=== PATIENT | female | born 1975 | race Caucasian/White ===

== ENCOUNTER 2020-07-28 14:42 | Inpatient (IN) | payer MEDICAID, OTHER ==
[~2020-07-28] VITALS: Ht 157.5 cm; Wt 64.0 kg
[2020-07-28 16:16] LABS: BASOPHILS % 0.6 % (0.0-2.0); EOSINOPHILS % 1.3 % (0.0-5.0); HEMOGLOBIN. 12.3 g/dL (12.0-16.0); MEAN CORPUSCULAR VOLUME 90.3 fL (81.0-99.0); MEAN PLATELET VOLUME 7.3 fl (7.4-10.4); NEUTROPHILS % 40.1 % (40.0-76.0); PLATELET 198 x1000/uL (130-400); RED BLOOD CELL COUNT 4.09 mill/uL (4.2-5.4); RED CELL DISTRIBUTION WIDTH 20.7 % (11.6-14.6)
[2020-07-28 16:21] LABS: CHLORIDE 112 mEq/L (98-107)
[2020-07-28 16:23] LABS: PROTHROMBIN TIME 10.4 sec (9.6-11.0)
[2020-07-28 16:29] LABS: HCG SCREEN NEGATIVE
[2020-07-28 16:54] LABS: CLARITY URINE CLOUDY (CLEAR); COLOR URINE YELLOW (YELLOW); KETONES URINE NEGATIVE (NEGATIVE); LEUKOCYTE ESTERASE URINE 1+ (NEGATIVE); NITRITE URINE NEGATIVE (NEGATIVE); OCCULT BLOOD URINE NEGATIVE (NEGATIVE); PROTEIN URINE NEGATIVE (NEGATIVE); SPECIFIC GRAVITY URINE 1.017 (1.005-1.030); UROBILINOGEN URINE 0.2 E.U./dL (0.2-1.0)
[2020-07-28] MEDS ORDERED: DIATR MEGLU/DIATRIZOATE SOLN 30ML ONE (18:20)
[2020-07-28] MEDS ORDERED: IOHEXOL-300 100 ML BOTTLE ONE (18:20)
[2020-07-28] MEDS ORDERED: ONDANSETRON HCL 4MG/2ML INJ IV STA (18:46)
[2020-07-28] MEDS ORDERED: CEFTRIAXONE 1 G PREMIX 50 ML IV ONE (19:00)
[2020-07-28] MEDS ORDERED: SODIUM CHLORIDE 0.9% 1,000 ML IV ONE (19:00)
[2020-07-28] MEDS ORDERED: POTASSIUM CHLORIDE 20MEQ TABLET SR PO ONE (20:30)
[2020-07-28] MEDS ORDERED: PANTOPRAZOLE SODIUM 40 MG/VIAL IV ONE (20:30)
[2020-07-29] MEDS ORDERED: LORAZEPAM 1MG TABLET PO ONE ×2 (00:15)
[2020-07-29] MEDS ORDERED: ACETAMINOPHEN 650MG SUPP PR PRN (01:00)
[2020-07-29] MEDS ORDERED: NA PHOS,M-B/NA PHOS,DI-BA ENEMA 118ML PR PRN (01:00)
[2020-07-29] MEDS ORDERED: CLONIDINE 0.1MG TABLET PO PRN (01:00)
[2020-07-29] MEDS ORDERED: MAGNESIUM/ALUMINUM HYDROXIDE/SIMETHICONE 30ML UDC PO PRN (01:00)
[2020-07-29] MEDS ORDERED: DIPHENHYDRAMINE 50MG/ML VIAL IV PRN (01:00)
[2020-07-29 01:25] VITALS: BP 148/90
[2020-07-29] MEDS: MORPHINE SULFATE 2 MG/ML CPJ (NOT FOR IM USE) IV PRN (02:17)
[2020-07-29] MEDS: DEXT 5%/0.45% NACL 1000ML 1,000 ML IV SCH ×3 (02:17→20:57)
[2020-07-29 04:00] VITALS: BP 121/78
[2020-07-29] MEDS: ONDANSETRON HCL 4MG/2ML INJ IV PRN ×2 (06:51→16:33)
[2020-07-29] MEDS ORDERED: *PATIENT'S OWN MEDICATION STORAGE XX SCH (07:15)
[2020-07-29 08:00] VITALS: BP 125/82
[2020-07-29] MEDS ORDERED: CALCIUM GLUCONATE 1GM PREMIX 50 ML IV NR (09:30)
[2020-07-29] MEDS: ENOXAPARIN 40MG/0.4ML SYR SUBCUT SCH (09:57)
[2020-07-29] MEDS: PANTOPRAZOLE SODIUM 40 MG/VIAL IV SCH (11:59)
[2020-07-29 12:00] VITALS: BP 132/76
[2020-07-29] MEDS ORDERED: THIAMINE HCL 100MG TABLET PO SCH (12:00)
[2020-07-29] MEDS: FOLIC ACID 1MG TABLET PO SCH (12:12)
[2020-07-29] MEDS: ACETAMINOPHEN 325MG TABLET PO PRN (12:13)
[2020-07-29] MEDS: CHLORDIAZEPOXIDE 10MG CAPSULE PO SCH ×2 (13:00→21:06)
[2020-07-29 13:34] LABS: BASOPHILS % 0.4 % (0.0-2.0); EOSINOPHILS % 0.9 % (0.0-5.0); HEMATOCRIT. 34.6 % (36.0-48.0); HEMOGLOBIN. 11.6 g/dL (12.0-16.0); MEAN CORPUSCULAR HEMOGLOBIN 29.8 pg (28.0-32.0); MEAN CORPUSCULAR VOLUME 88.9 fL (81.0-99.0); MEAN PLATELET VOLUME 7.7 fl (7.4-10.4); MONOCYTES % 11.9 % (2.0-8.0); NEUTROPHILS % 68.8 % (40.0-76.0); PLATELET 182 x1000/uL (130-400); RED CELL DISTRIBUTION WIDTH 20.5 % (11.6-14.6)
[2020-07-29 14:07] LABS: CHLORIDE 111 mEq/L (98-107)
[2020-07-29 16:00] VITALS: BP 121/69
[2020-07-29 16:27] LABS: FERRITIN 32 ng/mL (10-291)
[2020-07-29 16:38] LABS: HEPATITIS B SURFACE ANTIGEN NEGATIVE
[2020-07-29 17:07] LABS: HEPATITIS A AB IGM NEGATIVE (NEGATIVE)
[2020-07-29 17:38] LABS: METHADONE URINE SCREEN NEGATIVE (NEGATIVE)
[2020-07-29 17:39] LABS: *AMPHETAMINES SCREEN URINE NEGATIVE (NEGATIVE); *BARBITURATES SCREEN URINE NEGATIVE (NEGATIVE); *COCAINE SCREEN URINE NEGATIVE (NEGATIVE); PHENCYCLIDINE URINE SCREEN NEGATIVE (NEGATIVE)
[2020-07-29 17:41] LABS: *BENZODIAZEPINES SCREEN URINE PRESUMTIVE POSITIVE (NEGATIVE); CANNABINOID URINE SCREEN PRESUMTIVE POSITIVE (NEGATIVE); OPIATES URINE SCREEN PRESUMTIVE POSITIVE (NEGATIVE)
[2020-07-29 17:55] LABS: VITAMIN B12 SERUM 342 pg/mL (211-911)
[2020-07-29 20:00] VITALS: BP 131/82
[2020-07-29] MEDS: FOLIC ACID 1 MG, THIAMINE HCL 100 MG, MVI, ADULT NO.1 10 ML in DEXTROSE 5% WATER 1,000 ML IV SCH (21:06)
[2020-07-29] MEDS: CEFTRIAXONE 1,000 MG in DEXTROSE 5% WATER 50 ML IV SCH (21:06)
[2020-07-29] MEDS: LORAZEPAM 2MG/ML CPJ IV PRN (21:11)
[2020-07-30] VITALS (10 sets, daily range): BP systolic 110–139; BP diastolic 64–83
[2020-07-30] MEDS: DEXT 5%/0.45% NACL 1000ML 1,000 ML IV SCH ×2 (06:28→17:29)
[2020-07-30] MEDS: CHLORDIAZEPOXIDE 10MG CAPSULE PO SCH ×3 (06:29→21:24)
[2020-07-30] MEDS: PANTOPRAZOLE SODIUM 40 MG/VIAL IV SCH ×2 (08:08→10:47)
[2020-07-30] MEDS: ONDANSETRON HCL 4MG/2ML INJ IV PRN ×2 (08:08→10:46)
[2020-07-30] MEDS: ENOXAPARIN 40MG/0.4ML SYR SUBCUT SCH ×2 (08:08→08:30)
[2020-07-30] MEDS: FOLIC ACID 1MG TABLET PO SCH (08:08)
[2020-07-30] MEDS: LORAZEPAM 2MG/ML CPJ IV PRN ×2 (08:09→10:46)
[2020-07-30 08:55] LABS: CHLORIDE 110 mEq/L (98-107)
[2020-07-30 09:01] LABS: LDL CHOLESTEROL 80 mg/dL (5-100)
[2020-07-30 09:03] LABS: HDL CHOLESTEROL 116 mg/dL (40-59)
[2020-07-30] MEDS ORDERED: LIDOCAINE HCL 1% 20ML VIAL (Pyxis) INJ ONE (10:00)
[2020-07-30 15:21] LABS: HEMATOCRIT. 35.3 % (36.0-48.0); HEMOGLOBIN. 11.9 g/dL (12.0-16.0); MEAN CORPUSCULAR VOLUME 89.3 fL (81.0-99.0); PLATELET 180 x1000/uL (130-400); RED BLOOD CELL COUNT 3.96 mill/uL (4.2-5.4); RED CELL DISTRIBUTION WIDTH 19.7 % (11.6-14.6)
[2020-07-30 16:11] LABS: PLATELET ESTIMATE NORMAL
[2020-07-30] MEDS: MORPHINE SULFATE 2 MG/ML CPJ (NOT FOR IM USE) IV PRN (18:23)
[2020-07-30] MEDS: CEFTRIAXONE 1,000 MG in DEXTROSE 5% WATER 50 ML IV SCH (21:25)
[2020-07-30] MEDS: FOLIC ACID 1 MG, THIAMINE HCL 100 MG, MVI, ADULT NO.1 10 ML in DEXTROSE 5% WATER 1,000 ML IV SCH (21:43)
[2020-07-31] VITALS: BP 109/64
[2020-07-31] MEDS: DEXT 5%/0.45% NACL 1000ML 1,000 ML IV SCH ×3 (02:31→23:00)
[2020-07-31 03:55] VITALS: BP 103/62
[2020-07-31] MEDS: CHLORDIAZEPOXIDE 25MG CAPSULE PO SCH ×3 (05:21→22:00)
[2020-07-31] MEDS: ACETAMINOPHEN 325MG TABLET PO PRN ×2 (05:22→13:52)
[2020-07-31 08:00] VITALS: BP 98/68
[2020-07-31] MEDS: PANTOPRAZOLE SODIUM 40 MG/VIAL IV SCH (08:35)
[2020-07-31] MEDS: FOLIC ACID 1MG TABLET PO SCH (08:36)
[2020-07-31] MEDS: ENOXAPARIN 40MG/0.4ML SYR SUBCUT SCH ×2 (08:36→08:37)
[2020-07-31 12:00] VITALS: BP 110/63
[2020-07-31] MEDS: ONDANSETRON HCL 4MG/2ML INJ IV PRN (13:52)
[2020-07-31] MEDS ORDERED: LORAZEPAM 2MG/ML CPJ IV SCH (14:00)
[2020-07-31 16:00] VITALS: BP 118/66
[2020-07-31] MEDS: METOCLOPRAMIDE HCL 10MG/2ML VIAL IV SCH (18:16)
[2020-07-31 20:00] VITALS: BP 118/71
[2020-07-31] MEDS: CEFTRIAXONE 1,000 MG in DEXTROSE 5% WATER 50 ML IV SCH (22:00)
[2020-07-31] MEDS: FOLIC ACID 1 MG, THIAMINE HCL 100 MG, MVI, ADULT NO.1 10 ML in DEXTROSE 5% WATER 1,000 ML IV SCH (23:00)
[2020-08-01] VITALS: BP 115/70
[2020-08-01] MEDS: METOCLOPRAMIDE HCL 10MG/2ML VIAL IV SCH ×3 (02:14→12:49)
[2020-08-01 04:00] VITALS: BP 100/63
[2020-08-01] MEDS: CHLORDIAZEPOXIDE 25MG CAPSULE PO SCH ×2 (05:22→13:25)
[2020-08-01 06:50] LABS: BASOPHILS % 0.4 % (0.0-2.0); LYMPHOCYTES % 30.6 % (20.0-50.0); MEAN CORPUSCULAR HEMOGLOBIN 29.5 pg (28.0-32.0); MEAN CORPUSCULAR VOLUME 88.5 fL (81.0-99.0); MEAN PLATELET VOLUME 8.1 fl (7.4-10.4); MONOCYTES % 13.1 % (2.0-8.0); NEUTROPHILS % 52.9 % (40.0-76.0); PLATELET 170 x1000/uL (130-400); RED BLOOD CELL COUNT 3.73 mill/uL (4.2-5.4); RED CELL DISTRIBUTION WIDTH 20.3 % (11.6-14.6)
[2020-08-01 07:05] LABS: CHLORIDE 112 mEq/L (98-107)
[2020-08-01 08:00] VITALS: BP 103/58
[2020-08-01] MEDS ORDERED: POTASSIUM CHLORIDE 20MEQ TABLET SR PO NR (08:00)
[2020-08-01] MEDS: ENOXAPARIN 40MG/0.4ML SYR SUBCUT SCH (09:00)
[2020-08-01] MEDS: FOLIC ACID 1MG TABLET PO SCH (09:10)
[2020-08-01] MEDS: PANTOPRAZOLE SODIUM 40 MG/VIAL IV SCH (09:10)
[2020-08-01] MEDS: DEXT 5%/0.45% NACL 1000ML 1,000 ML IV SCH (11:33)
[2020-08-01 12:00] VITALS: BP 123/78
[2020-08-01] MEDS ORDERED: PANT40SU MT (12:10)
[2020-08-01] MEDS ORDERED: CHLO25CA10 MT (12:10)
[2020-08-01] MEDS ORDERED: FOLI-43 MT (12:11)
[2020-08-01 14:40] VITALS: BP 136/82
== END 2020-08-01 15:35 | disposition home or self-care (01) | DRG 245 ==
LOC: ER 14:42 → 6WST 20:31 → ENRESERV 22:20
PROVIDERS: ADMIT Family Medicine; ATTEND Family Medicine
PROC: 02HV33Z Insertion of Infusion Device into Superior Vena Cava, Percutaneous Approach (ICD-10-PCS; principal; 2020-07-30)
PROC: B548ZZA Ultrasonography of Superior Vena Cava, Guidance (ICD-10-PCS; 2020-07-30)
DX: K51.911 Ulcerative colitis, unspecified with rectal bleeding (principal); K76.0 Fatty (change of) liver, not elsewhere classified; K70.10 Alcoholic hepatitis without ascites; D50.9 Iron deficiency anemia, unspecified; D64.9 Anemia, unspecified; E87.6 Hypokalemia; F17.210 Nicotine dependence, cigarettes, uncomplicated; F10.139 Alcohol abuse with withdrawal, unspecified; I10 Essential (primary) hypertension; F41.9 Anxiety disorder, unspecified; G40.909 Epilepsy, unspecified, not intractable, without status epilepticus; Y90.9 Presence of alcohol in blood, level not specified; N39.0 Urinary tract infection, site not specified; R74.01 Elevation of levels of liver transaminase levels; Z20.822 Contact with and (suspected) exposure to COVID-19; Z87.19 Personal history of other diseases of the digestive system
CPT/HCPCS: 36415; 71045; 74176; 74177; 76700; 76937; 80048; 80053; 80061; 80076; 80305; 81003; 82270; 82607; 82705; 82728; 82746; 83540; 83550; 83735; 84703; 85025; 85044; 86705; 86709; 86803; 86850; 86900; 87015; 87045; 87340; 87427; 87449; 87493; 99291; C1725; C1893; C9113; J0610; J0696; J1650; J2060; J2270; J2405; J2765; J3411; J3490; J7030; J7060; J7070; Q9963; Q9967

== ENCOUNTER 2022-06-13 12:01 | Inpatient (IN) | payer MEDICAID, OTHER ==
[~2022-06-13] VITALS: Ht 154.9 cm; Wt 49.9 kg
[~2022-06-13 12:01] MED LIST: CHLO25CA10 MT; FOLI-43 MT; PANT40SU MT
[2022-06-13] MEDS ORDERED: ONDANSETRON HCL 4MG/2ML INJ IV STA ×2 (12:19→14:41)
[2022-06-13] MEDS ORDERED: SODIUM CHLORIDE 0.9% 1,000 ML IV ONE ×2 (12:30→14:45)
[2022-06-13 12:44] LABS: BASOPHILS % 0.3 % (0.0-2.0); EOSINOPHILS % 0.8 % (0.0-5.0); LYMPHOCYTES % 15.6 % (20.0-50.0); MEAN CORPUSCULAR HEMOGLOBIN 38.2 pg (28.0-32.0); MEAN CORPUSCULAR VOLUME 108.9 fL (81.0-99.0); MEAN PLATELET VOLUME 8.5 fl (7.4-10.4); MONOCYTES % 9.6 % (2.0-8.0); NEUTROPHILS % 73.7 % (40.0-76.0); PLATELET 139 x1000/uL (130-400)
[2022-06-13 13:26] LABS: HCG SCREEN NEGATIVE
[2022-06-13 13:30] LABS: CHLORIDE 96 mEq/L (98-107)
[2022-06-13 13:44] LABS: ETHANOL BLOOD 16 mg/dL
[2022-06-13] MEDS ORDERED: POTASSIUM CHLORIDE INJ 40 MEQ in DEXT 5% WATER 500 ML IV ONE (14:15)
[2022-06-13] MEDS ORDERED: POTASSIUM CHLORIDE 20MEQ TABLET SR PO ONE (14:15)
[2022-06-13] MEDS ORDERED: POTASSIUM CHLORIDE INJ 40 MEQ in DEXT 5% WATER 500 ML IV NR (14:15)
[2022-06-13] MEDS ORDERED: KETOROLAC 30MG/ML VIAL IV STA (14:41)
[2022-06-13] MEDS ORDERED: CHLORDIAZEPOXIDE 25MG CAPSULE PO ONE (14:45)
[2022-06-13 15:08] LABS: CLARITY URINE TURBID (CLEAR); COLOR URINE DARK YELLOW (YELLOW); KETONES URINE TRACE (NEGATIVE); LEUKOCYTE ESTERASE URINE 3+ (NEGATIVE); NITRITE URINE POSITIVE (NEGATIVE); OCCULT BLOOD URINE NEGATIVE (NEGATIVE); PROTEIN URINE 1+ (NEGATIVE); SPECIFIC GRAVITY URINE 1.015 (1.005-1.030); UROBILINOGEN URINE >8.0 E.U./dL (0.2-1.0)
[2022-06-13] MEDS ORDERED: CEFTRIAXONE 1GM PREMIX 50 ML IV ONE (15:45)
[2022-06-13] MEDS ORDERED: CHLORDIAZEPOXIDE 25MG CAPSULE PO NR (16:00)
[2022-06-13] MEDS ORDERED: POTASSIUM CHLORIDE 20MEQ TABLET SR PO NR (16:00)
[2022-06-13 16:03] LABS: *AMPHETAMINES SCREEN URINE NEGATIVE (NEGATIVE); *BARBITURATES SCREEN URINE NEGATIVE (NEGATIVE); *BENZODIAZEPINES SCREEN URINE NEGATIVE (NEGATIVE); *COCAINE SCREEN URINE NEGATIVE (NEGATIVE); METHADONE URINE SCREEN NEGATIVE (NEGATIVE); OPIATES URINE SCREEN NEGATIVE (NEGATIVE); PHENCYCLIDINE URINE SCREEN NEGATIVE (NEGATIVE)
[2022-06-13 16:04] LABS: CANNABINOID URINE SCREEN PRESUMTIVE POSITIVE (NEGATIVE)
[2022-06-14 06:28] VITALS: BP 127/82
[2022-06-14 08:00] VITALS: BP 132/84
[2022-06-14] MEDS ORDERED: DIPHENHYDRAMINE 50MG/ML VIAL IV PRN (09:30)
[2022-06-14] MEDS ORDERED: IPRATROPIUM/ALBUTEROL 0.5-3(2.5)MG/3ML NEB HHN PRN (09:30)
[2022-06-14] MEDS ORDERED: CLONIDINE 0.1MG TABLET PO PRN (09:30)
[2022-06-14] MEDS: ONDANSETRON HCL 4MG/2ML INJ IV PRN ×2 (10:03→15:54)
[2022-06-14 12:00] VITALS: BP 124/66
[2022-06-14] MEDS ORDERED: LORAZEPAM 2MG/ML CPJ IV PRN (12:30)
[2022-06-14] MEDS: ACETAMINOPHEN 325MG TABLET PO PRN (14:28)
[2022-06-14] MEDS: CHLORDIAZEPOXIDE 25MG CAPSULE PO SCH ×2 (14:40→21:02)
[2022-06-14] MEDS: CEFTRIAXONE 1,000 MG in DEXTROSE 5% WATER 50 ML IV SCH (15:50)
[2022-06-14 16:00] VITALS: BP 118/74
[2022-06-14 20:00] VITALS: BP 119/83
[2022-06-15] VITALS: BP 117/80
[2022-06-15 04:00] VITALS: BP 100/71
[2022-06-15] MEDS: CHLORDIAZEPOXIDE 25MG CAPSULE PO SCH ×3 (05:20→21:19)
[2022-06-15 07:03] LABS: BASOPHILS % 0.6 % (0.0-2.0); EOSINOPHILS % 2.9 % (0.0-5.0); HEMATOCRIT. 33.9 % (36.0-48.0); HEMOGLOBIN. 11.9 g/dL (12.0-16.0); LYMPHOCYTES % 24.6 % (20.0-50.0); MEAN CORPUSCULAR HEMOGLOBIN 38.5 pg (28.0-32.0); MEAN CORPUSCULAR VOLUME 109.7 fL (81.0-99.0); MEAN PLATELET VOLUME 9.2 fl (7.4-10.4); MONOCYTES % 11.9 % (2.0-8.0); PLATELET 141 x1000/uL (130-400); RED BLOOD CELL COUNT 3.09 mill/uL (4.2-5.4); RED CELL DISTRIBUTION WIDTH 15.6 % (11.6-14.6)
[2022-06-15 08:00] VITALS: BP 113/79
[2022-06-15 12:00] VITALS: BP 118/81
[2022-06-15 13:49] LABS: CHLORIDE 102 mEq/L (98-107)
[2022-06-15] MEDS: ACETAMINOPHEN 325MG TABLET PO PRN ×2 (13:53→21:19)
[2022-06-15] MEDS: SODIUM CHLORIDE 0.9% 1,000 ML IV SCH (13:58)
[2022-06-15] MEDS: ONDANSETRON HCL 4MG/2ML INJ IV PRN (14:27)
[2022-06-15] MEDS: CEFTRIAXONE 1,000 MG in DEXTROSE 5% WATER 50 ML IV SCH (14:27)
[2022-06-15 16:00] VITALS: BP 125/69
[2022-06-16] VITALS: BP 115/73
[2022-06-16] MEDS: SODIUM CHLORIDE 0.9% 1,000 ML IV SCH ×2 (02:36→16:10)
[2022-06-16 04:00] VITALS: BP 115/73
[2022-06-16] MEDS: CHLORDIAZEPOXIDE 25MG CAPSULE PO SCH ×3 (06:00→21:10)
[2022-06-16 07:11] LABS: BASOPHILS % 0.4 % (0.0-2.0); EOSINOPHILS % 2.5 % (0.0-5.0); HEMATOCRIT. 36.7 % (36.0-48.0); HEMOGLOBIN. 12.4 g/dL (12.0-16.0); LYMPHOCYTES % 20.9 % (20.0-50.0); MEAN CORPUSCULAR HEMOGLOBIN 38.1 pg (28.0-32.0); MEAN CORPUSCULAR VOLUME 112.8 fL (81.0-99.0); MEAN PLATELET VOLUME 8.9 fl (7.4-10.4); MONOCYTES % 13.2 % (2.0-8.0); PLATELET 133 x1000/uL (130-400); RED BLOOD CELL COUNT 3.25 mill/uL (4.2-5.4); RED CELL DISTRIBUTION WIDTH 15.3 % (11.6-14.6)
[2022-06-16 07:48] LABS: CHLORIDE 106 mEq/L (98-107)
[2022-06-16 08:00] VITALS: BP 123/67
[2022-06-16] MEDS: ONDANSETRON HCL 4MG/2ML INJ IV PRN ×2 (08:49→21:10)
[2022-06-16] MEDS: ACETAMINOPHEN 325MG TABLET PO PRN ×2 (08:50→21:10)
[2022-06-16 11:59] VITALS: BP 113/70
[2022-06-16 16:00] VITALS: BP 139/89
[2022-06-16] MEDS: CEFTRIAXONE 1,000 MG in DEXTROSE 5% WATER 50 ML IV SCH (16:10)
[2022-06-16 20:00] VITALS: BP 125/86
[2022-06-16 22:34] LABS: PLATELET ESTIMATE NORMAL
[2022-06-17] MEDS: SODIUM CHLORIDE 0.9% 1,000 ML IV SCH (03:10)
[2022-06-17] MEDS: HYDROCODONE/ACETAMINOPHEN 5/325MG TABLET PO PRN (03:39)
[2022-06-17] MEDS ORDERED: NALOXONE HCL 0.4MG/ML VIAL IV PRN (03:45)
[2022-06-17 04:00] VITALS: BP 123/78
[2022-06-17] MEDS: CHLORDIAZEPOXIDE 25MG CAPSULE PO SCH ×3 (05:29→23:57)
[2022-06-17 05:37] LABS: CHLORIDE 105 mEq/L (98-107)
[2022-06-17 05:52] LABS: HEMATOCRIT. 36.1 % (36.0-48.0); HEMOGLOBIN. 12.3 g/dL (12.0-16.0); MEAN CORPUSCULAR HEMOGLOBIN 38.7 pg (28.0-32.0); MEAN CORPUSCULAR VOLUME 113.2 fL (81.0-99.0); MEAN PLATELET VOLUME 9.2 fl (7.4-10.4); PLATELET 161 x1000/uL (130-400); RED BLOOD CELL COUNT 3.19 mill/uL (4.2-5.4); RED CELL DISTRIBUTION WIDTH 15.5 % (11.6-14.6)
[2022-06-17 08:00] VITALS: BP 99/61
[2022-06-17 11:37] LABS: PLATELET ESTIMATE NORMAL
[2022-06-17 12:00] VITALS: BP 106/70
[2022-06-17] MEDS ORDERED: FLUCONAZOLE 150MG TABLET PO NR (13:00)
[2022-06-17 15:58] VITALS: BP 123/76
[2022-06-17 20:00] VITALS: BP 119/80
[2022-06-18] VITALS: BP 114/74
[2022-06-18] MEDS: HYDROCODONE/ACETAMINOPHEN 5/325MG TABLET PO PRN ×2 (00:08→10:29)
[2022-06-18 04:00] VITALS: BP 109/68
[2022-06-18] MEDS: SODIUM CHLORIDE 0.9% 1,000 ML IV SCH (04:00)
[2022-06-18] MEDS: CHLORDIAZEPOXIDE 25MG CAPSULE PO SCH (06:21)
[2022-06-18 08:00] VITALS: BP 105/70
[2022-06-18] MEDS ORDERED: L25 MT (11:18)
[2022-06-18 12:00] VITALS: BP_SYST 101; BP_SYST 91; BP_DIAS 54; BP_DIAS 60
[2022-06-18 16:00] VITALS: BP 105/61
== END 2022-06-18 16:50 | disposition home or self-care (01) | DRG 425 ==
LOC: ER 12:01 → 6EST 15:47 → EDBEDREQ 15:48
PROVIDERS: ADMIT Internal Medicine; ATTEND Internal Medicine
DX: E87.6 Hypokalemia (principal); E44.0 Moderate protein-calorie malnutrition; F10.229 Alcohol dependence with intoxication, unspecified; F10.239 Alcohol dependence with withdrawal, unspecified; I10 Essential (primary) hypertension; N39.0 Urinary tract infection, site not specified; Y90.0 Blood alcohol level of less than 20 mg/100 ml; Z98.82 Breast implant status; Z91.040 Latex allergy status
CPT/HCPCS: 36415; 74176; 80048; 80053; 80305; 80320; 81003; 84703; 85025; 93005; 93970; 99285; C1893; J0696; J1885; J2405; J3480; J7030; J7060; G0480